=== PATIENT | female | born 1995 | race Caucasian/White ===

== ENCOUNTER 2017-03-23 17:15 | Emergency (ER) | payer OTHER ==
[~2017-03-23] VITALS: Ht 154.9 cm; Wt 70.0 kg
[2017-03-23 17:19] VITALS: BP 137/87; PULSE 95; RESP 18; TEMP 98.1; O2SAT 100
--- NOTE | 2017-03-23 17:23 | PD ---
Physical Exam Date Seen by Provider: Mar 23, 2017 Time Seen by Provider: 17:22 Narrative 21 yo female here for evaluation of palpitations and dizziness. Going on since today. [place] like her heart is palpitating. Comes and goes. Feels off balance. Dizzy and lightheaded. No pain. No history of this. Vitals are stable in triage. Awaiting bed placement. Data Data Last Documented VS Vital Signs Date Time Temp Pulse Resp B/P Pulse Ox O2 Delivery O2 Flow Rate FiO2 03/23/17 17:19 98.1 95 18 137/87 100 Room Air [facility] Medical Record Reviewed: Yes Supervised Visit with SINCERE: No Boone Schumacher Mar 23, 2017 17:23
[2017-03-23] MEDS ORDERED: SODIUM CHLORIDE 0.9% FLUSH 10 ML FLUSH IVF PRN (18:00)
--- NOTE | 2017-03-23 18:23 | PD ---
HPI Chief Complaint: Dizziness Time Seen by Provider: 17:48 Travel History International Travel<30 days: No Contact w/Intl Traveler<30days: No Traveled to known affect area: No History of Present Illness HPI Patient is a 21-year-old female presents emergency Department with palpitations and shortness of breath. Patient states this started at work earlier today and had almost completely away but she wanted to come in and be seen for anyways, she states that during the history portion of her encounter the symptoms are gradually coming back. States this happened once before to her and she presents emergency room and nothing could be found. She never had a Holter monitor performed. She denies any history of long travel smoking OCPs or blood clots. Denies any leg swelling denies any chest pain. PFSH Past Medical History Medical History: Denies Significant Hx ?: Not Past Surgical History Surgical History: No Previous Surgery Social History Tobacco Use: No Allergies-Medications (Allergen,Severity, Reaction): Coded Allergies: No Known Allergies (Unverified , 03/23/17) Review of Systems Except as stated in HPI: all other systems reviewed are Neg Physical Exam Narrative GENERAL: Well-developed well-nourished appears mildly anxious. SKIN: Focused skin assessment warm/dry. HEAD: Atraumatic. Normocephalic. EYES: Pupils equal and round. No scleral icterus. No injection or drainage. ENT: No nasal bleeding or discharge. Mucous membranes pink and moist. NECK: Trachea midline. No JVD. CARDIOVASCULAR: Regular rate and rhythm. No murmur appreciated. RESPIRATORY: No accessory muscle use. Clear to auscultation. Breath sounds equal bilaterally. Mild tachypneic. GASTROINTESTINAL: Abdomen soft, non-tender, nondistended. Hepatic and splenic margins not palpable. MUSCULOSKELETAL: No obvious deformities. No clubbing. No cyanosis. No edema. NEUROLOGICAL: Awake and alert. No obvious cranial nerve deficits. Motor grossly within normal limits. Normal speech. PSYCHIATRIC: Appropriate mood and affect; insight and judgment normal. Data Data Last Documented VS Vital Signs Date Time Temp Pulse Resp B/P Pulse Ox O2 Delivery O2 Flow Rate FiO2 03/23/17 20:19 85 18 118/69 99 03/23/17 18:58 Room Air 03/23/17 17:19 98.1 Orders Electrocardiogram (03/23/17 17:54) Ckmb (Isoenzyme) Profile (03/23/17 17:54) Complete Blood Count With Diff (03/23/17 17:54) Comprehensive Metabolic Panel (03/23/17 17:54) D-Dimer (03/23/17 17:54) Magnesium (Mg) (03/23/17 17:54) Prothrombin Time / Inr (Pt) (03/23/17 17:54) Act Partial Throm Time (Ptt) (03/23/17 17:54) Troponin I (03/23/17 17:54) Chest, Single Ap (03/23/17 17:54) Ecg Monitoring (03/23/17 17:54) Iv Access Insert/Monitor (03/23/17 17:54) Oximetry (03/23/17 17:54) Oxygen Administration (03/23/17 17:54) Sodium Chloride 0.9% Flush (Ns Flush) (03/23/17 18:00) Ed Urine Pregnancytest Poc (03/23/17 17:54) Mandatory Outpatient Referral (03/23/17 19:54) Labs Laboratory Tests Test 03/23/17 18:40 White Blood Count 9.7 TH/MM3 Red Blood Count 4.22 MIL/MM3 Hemoglobin 13.7 GM/DL Hematocrit 40.0 % Mean Corpuscular Volume 94.9 FL Mean Corpuscular Hemoglobin 32.6 PG Mean Corpuscular Hemoglobin 34.3 % Concent Red Cell Distribution Width 12.3 % Platelet Count 283 TH/MM3 Mean Platelet Volume 7.9 FL Neutrophils (%) (Auto) 62.6 % Lymphocytes (%) (Auto) 26.1 % Monocytes (%) (Auto) 6.8 % Eosinophils (%) (Auto) 3.8 % Basophils (%) (Auto) 0.7 % Neutrophils # (Auto) 6.1 TH/MM3 Lymphocytes # (Auto) 2.5 TH/MM3 Monocytes # (Auto) 0.7 TH/MM3 Eosinophils # (Auto) 0.4 TH/MM3 Basophils # (Auto) 0.1 TH/MM3 CBC Comment DIFF FINAL Differential Comment Prothrombin Time 10.8 SEC Prothromb Time International 1.0 RATIO Ratio Activated Partial 26.4 SEC Thromboplast Time D-Dimer Quantitative (PE/DVT) LESS THAN 0.19 MG/L FEU Sodium Level 136 MEQ/L Potassium Level 3.4 MEQ/L Chloride Level 105 MEQ/L Carbon Dioxide Level 26.3 MEQ/L Anion Gap 5 MEQ/L Blood Urea Nitrogen 7 MG/DL Creatinine 0.74 MG/DL Estimat Glomerular Filtration 97 ML/MIN Rate Random Glucose 65 MG/DL Calcium Level 8.6 MG/DL Magnesium Level 2.1 MG/DL Total Bilirubin 0.3 MG/DL Aspartate Amino Transf 9 U/L (AST/SGOT) Alanine Aminotransferase 16 U/L (ALT/SGPT) Alkaline Phosphatase 69 U/L Total Creatine Kinase 83 U/L Troponin I LESS THAN 0.02 NG/ML Total Protein 7.5 GM/DL Albumin 3.8 GM/DL MDM Medical Decision Making Medical Screen Exam Complete: Yes Emergency Medical Condition: Yes Interpretation(s) EKG shows sinus rhythm rate of 75, normal axis normal R-wave progression. Intervals within normal limits. Nonspecific RSR prime pattern in V1. Borderline EKG. Differential Diagnosis Palpitations, PE, electrolyte abnormality, ACS unlikely, CHF unlikely. Narrative Course Patient roomed emerged department, d-dimer troponin negative. Elect lites within normal limits. Chest x-ray negative. EKG is reassuring. Patient on revisit her symptoms have resolved. She has had no desaturation emerged Department. She is stable for discharge. Discussed with her need follow-up with a terrapin fisher a regular physician for consideration of Holter monitor. She verbalized understanding and agreement. Discussed return to ED criteria. Diagnosis Primary Impression: Palpitations Referrals: Willie Girard MD Disposition: 01 DISCHARGE HOME Condition: Stable Gregg Perrin MD Mar 23, 2017 18:23
--- NOTE | 2017-03-23 18:42 | RADRPT ---
EXAM DATE/TIME: 03/23/2017 18:11 [facility] COMPARISON: No previous studies available for comparison. INDICATIONS : Chest pain, shortness of breath. MEDICAL HISTORY : None. SURGICAL HISTORY : None. ENCOUNTER: Initial ACUITY: 1 day PAIN SCORE: 2/10 LOCATION: Bilateral chest FINDINGS: A single view of the chest demonstrates the lungs to be symmetrically aerated without evidence of mas s, infiltrate or effusion. The cardiomediastinal contours are unremarkable. Osseous structures are intact. CONCLUSION: No acute disease. Miguel Ritchie MD on March 23, 2017 at 18:40 Board Certified Radiologist. This report was verified electronically.
[2017-03-23 18:58] VITALS: O2SAT 99
[2017-03-23 19:14] LABS: AUTOMATED NEUTROPHIL # 6.1 TH/MM3 (1.8-7.7); BASOPHIL # 0.1 TH/MM3 (0-0.2); BASOPHIL % 0.7 % (0.0-2.0); EOSINOPHIL # 0.4 TH/MM3 (0-0.4); EOSINOPHIL % 3.8 % (0.0-4.0); HEMO FLAGS DIFF FINAL; LYMPH % 26.1 % (9.0-44.0); LYMPHOCYTE # 2.5 TH/MM3 (1.0-4.8); MEAN CELL VOLUME 94.9 FL (80.0-100.0); MEAN CORPUSCULAR HEMOGLOBIN 32.6 PG (27.0-34.0); MEAN CORPUSCULAR HGB CONC 34.3 % (32.0-36.0); MONO % 6.8 % (0.0-8.0); NEUT % 62.6 % (16.0-70.0); PLATELET COUNT 283 TH/MM3 (150-450); RED BLOOD COUNT 4.22 MIL/MM3 (4.00-5.30); RED CELL DISTRIBUTION WIDTH 12.3 % (11.6-17.2); WHITE BLOOD COUNT 9.7 TH/MM3 (4.0-11.0)
[2017-03-23 19:31] LABS: APTT (PATIENT) 26.4 SEC (24.3-30.1); PROTHROMBIN TIME - PATIENT 10.8 SEC (9.8-11.6)
[2017-03-23 19:43] LABS: ANION GAP 5 MEQ/L (5-15); AST (GOT) 9 U/L (15-37); BICARBONATE 26.3 MEQ/L (21.0-32.0); BLOOD UREA NITROGEN 7 MG/DL (7-18); CHLORIDE 105 MEQ/L (98-107); GLOMERULAR FILTRATION RATE 97 ML/MIN (>89); MAGNESIUM 2.1 MG/DL (1.5-2.5); POTASSIUM 3.4 MEQ/L (3.5-5.1); SODIUM (NA) 136 MEQ/L (136-145)
[2017-03-23 19:44] LABS: ALT (GPT) 16 U/L (10-53)
[2017-03-23 19:48] LABS: ALKALINE PHOSPHATASE 69 U/L (45-117); TOTAL BILIRUBIN ADULT 0.3 MG/DL (0.2-1.0)
[2017-03-23 19:50] LABS: CREATINE KINASE 83 U/L (26-192)
[2017-03-23 20:19] VITALS: BP 118/69
--- NOTE | 2017-03-24 16:38 | EKG ---
Date Performed: 03/23/2017 Time Performed: 18:38:57 PTAGE: 21 years EKG: Within normal limits NO PREVIOUS TRACING DOCTOR: Dashawn Triana Interpretating Date/Time 03/24/2017 16:37:41
== END 2017-03-23 20:20 | disposition home or self-care (01) ==
LOC: NEPD 17:15
DX: R00.2 Palpitations (principal); R06.02 Shortness of breath; R42 Dizziness and giddiness; R07.9 Chest pain, unspecified
CPT/HCPCS: 71010; 80053; 82550; 83735; 84484; 84703; 85025; 85379; 85610; 85730; 93005